=== PATIENT | female | born 1990 | race Hispanic/Latino ===

== ENCOUNTER 2017-02-23 01:58 | Emergency (ER) | payer SELFPAY ==
[2017-02-23 02:14] VITALS: BP 127/83; PULSE 126; RESP 16; TEMP 98.7; O2SAT 100
[2017-02-23] MEDS ORDERED: Oxycodone/Acetaminophen 5/325 mg Tab PO STA (02:14)
[2017-02-23] MEDS ORDERED: diaZEpam 10 mg/2 ml Inj IVP ONE ×2 (03:48→04:39)
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
[2017-02-23] MEDS ORDERED: diaZEpam 10 mg/2 ml Inj ONE (05:09)
[2017-02-23] MEDS ORDERED: HYDROmorphone 0.5 mg/0.5 ml ISec ONE (05:10)
[2017-02-23] MEDS ORDERED: Sodium Chloride 0.9% 1,000 ML IV STA (05:16)
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
--- NOTE | 2017-02-23 07:00 | RAD ---
HISTORY: elbow injury COMPARISON: No prior FINDINGS: BONES: Normal. No fracture. JOINTS: Normal. No osteoarthritis. SOFT TISSUE: Normal. OTHER FINDINGS: None . IMPRESSION: Normal Bone Xray.
== END 2017-02-23 07:04 | disposition home or self-care (01) ==
LOC: H.ER 01:58
DX: S53.101A Unspecified subluxation of right ulnohumeral joint, initial encounter (principal); W19.XXXA Unspecified fall, initial encounter; Y92.89 Other specified places as the place of occurrence of the external cause
CPT/HCPCS: 73070; 73080; 81025; 96374; 96375; 96376; 99284; J1170; J1885; J2270; J3360; J7040